=== PATIENT | male | born 1945 | race Caucasian/White ===

== ENCOUNTER → 2016-07-15 | Outpatient (CLI) | payer OTHER, MEDICARE ==
[~2016-07-15] MED LIST: ASPI81TA2 PO; LIP10 PO; SITA1TAB9 PO
[2016-07-15 11:30] LABS: BASOPHILS # (AUTO) 0.1 K/uL (0.0-0.2); BASOPHILS % (AUTO) 0.7 % (0.0-2.0); EOSINOPHILS # (AUTO) 0.4 K/uL (0.0-0.4); EOSINOPHILS % (AUTO) 4.9 % (0.0-4.0); HEMATOCRIT 44.8 % (36-54); HEMOGLOBIN 14.3 g/dL (14.0-18.0); LYMPHOCYTES # (AUTO) 2.2 K/uL (1.0-5.5); LYMPHOCYTES % (AUTO) 27.9 % (20.5-51.5); MEAN CORPUSCULAR HEMOGLOBIN 27 pg (27-31); MEAN CORPUSCULAR HGB CONC 32 % (32-36); MEAN CORPUSCULAR VOLUME 86 fL (79.0-98.0); MONOCYTES # (AUTO) 0.4 K/uL (0.0-1.0); MONOCYTES % (AUTO) 5.6 % (1.7-9.3); NEUTROPHILS # (AUTO) 4.6 K/uL (1.8-7.7); NEUTROPHILS % (AUTO) 60.9 % (40.0-70.0); PLATELET COUNT (AUTO) 254 K/uL (130-430); RED BLOOD CELL COUNT(AUTO) 5.23 MIL/uL (4.2-6.2); RED CELL DISTRIBUTION WIDTH 12.5 % (9.0-15.0); WHITE BLOOD COUNT (AUTO) 7.7 K/uL (4.8-10.8)
[2016-07-15 11:31] LABS: BILIRUBIN,URINE NEGATIVE (NEGATIVE); BLOOD, URINE 1+ (NEGATIVE); CLARITY/URINE CLEAR (CLEAR); COLOR,URINE YELLOW (YELLOW); GLUCOSE,URINE NEGATIVE (NEGATIVE); KETONES,URINE NEGATIVE (NEGATIVE); LEUKOCYTE ESTERASE ,URINE NEGATIVE (NEGATIVE); NITRITE, URINE NEGATIVE (NEGATIVE); PROTEIN URINE NEGATIVE (NEGATIVE); UROBILINOGEN,URINE 0.2 (0.2-1.0)
[2016-07-15 11:50] LABS: ALANINE AMINOTRANSFERASE 23 U/L (12-78); ALBUMIN 3.9 g/dL (3.4-4.8); ANION GAP 6 (5-15); ASPARTATE AMINOTRANSFERASE 18 U/L (10-37); CALCIUM 9.1 mg/dL (8.4-11.0); CHLORIDE 103 mmol/L (98-107); CHOLESTEROL 129 mg/dL (<200); CREATININE 1.22 mg/dL (0.55-1.30); GLUCOSE 106 mg/dL (70-99); HDL CHOLESTEROL 39 mg/dL (>45); LDL CHOLESTEROL 60 mg/dL (<100); POTASSIUM 4.6 mmol/L (3.5-5.1); SODIUM SERUM 138 mmol/L (136-145); THYROID STIMULATING HORMONE 1.93 uIu/mL (0.34-4.82); TOTAL BILIRUBIN 0.5 mg/dL (0.0-1.0); TOTAL PROTEIN, SERUM 8.3 g/dL (6.4-8.3); TRIGLYCERIDES 163 mg/dL (30-150); UREA NITROGEN, BLOOD 26 mg/dL (8-21)
[2016-07-15 11:59] LABS: BACTERIA,URINE RARE /HPF (None Seen); MUCUS,URINE 1+ /LPF (None Seen); WBC,URINE 0-3 /HPF (0-3)
[2016-07-18 08:06] LABS: % FREE PSA 20.5 % (.); FREE PSA 0.84 ng/mL
[2016-07-18 14:19] LABS: HEMOGLOBIN A1C 5.8 % (4.8-5.6)
[2016-07-18 14:21] LABS: PROSTATE SPECIFIC AG TOTAL 4.1 ng/mL (0.0-4.0)
== END | disposition home or self-care (01) ==
LOC: SLB 10:34
PROVIDERS: ATTEND Specialist
DX: N40.1 Benign prostatic hyperplasia with lower urinary tract symptoms (principal); R73.03 Prediabetes; E78.2 Mixed hyperlipidemia; R97.20 Elevated prostate specific antigen [PSA]
CPT/HCPCS: 36415; 80053; 80061; 81000-TC; 83036; 84153; 84443-TC; 85025

== ENCOUNTER 2018-07-01 09:22 | Emergency (ER) | payer OTHER, MEDICARE ==
[~2018-07-01] VITALS: Ht 170.2 cm; Wt 71.7 kg
[~2018-07-01 09:22] MED LIST changes: +ASPI-1155 PO; -ASPI81TA2 PO
[2018-07-01 09:29] VITALS: BP_SYST 164
--- NOTE | 2018-07-01 09:34 | NUR ---
Patient to ER bed 6 to gown for evaluation. Side rails up. Report given to Sam VALLE.
--- NOTE | 2018-07-01 09:40 | NUR ---
Pt presents to ED worsening of R lower back pain. Pt h/o NE and pre-diabetes. Pt reports pain started approx 2 months ago. Pt gradually worsened over last few days.
[2018-07-01] MEDS ORDERED: NACL 0.9% 1,000 ML IV ONE (09:41)
[2018-07-01] MEDS ORDERED: ONDANSETRON HCL 4 MG/2 ML VIAL IVP ONE (09:45)
[2018-07-01] MEDS ORDERED: MORPHINE 4 MG/ML INJ. SYRINGE IVP ONE (09:45)
[2018-07-01] MEDS ORDERED: DEXAMETHASONE SOD PHOSPHATE 10 MG/ML VIAL IVP ONE (09:45)
--- NOTE | 2018-07-01 09:45 | NUR ---
ER at bedside examining patient.
--- NOTE | 2018-07-01 10:15 | NUR ---
Pt medicated tolerated well. Will monitor for improvement.
[2018-07-01 10:21] LABS: BASOPHILS % (AUTO) 0.3 % (0.0-2.0); EOSINOPHILS % (AUTO) 0.6 % (0.0-4.0); HEMATOCRIT 42.1 % (36-54); HEMOGLOBIN 13.8 g/dL (14.0-18.0); LYMPHOCYTES # (AUTO) 1.4 K/uL (1.0-5.5); LYMPHOCYTES % (AUTO) 17.2 % (20.5-51.5); MEAN CORPUSCULAR HEMOGLOBIN 28 pg (27-31); MEAN CORPUSCULAR HGB CONC 33 % (32-36); MEAN CORPUSCULAR VOLUME 85 fL (79.0-98.0); MONOCYTES # (AUTO) 0.3 K/uL (0.0-1.0); MONOCYTES % (AUTO) 3.7 % (1.7-9.3); NEUTROPHILS # (AUTO) 6.2 K/uL (1.8-7.7); NEUTROPHILS % (AUTO) 78.2 % (40.0-70.0); PLATELET COUNT (AUTO) 208 K/uL (130-430); RED BLOOD CELL COUNT(AUTO) 4.95 MIL/uL (4.2-6.2); RED CELL DISTRIBUTION WIDTH 13.1 % (9.0-15.0); WHITE BLOOD COUNT (AUTO) 7.9 K/uL (4.8-10.8)
--- NOTE | 2018-07-01 10:34 | NUR ---
Pt repositioned for comfort and pain relief.
[2018-07-01 10:45] LABS: ANION GAP 10 (5-15); CALCIUM 8.7 mg/dL (8.4-11.0); CHLORIDE 102 mmol/L (98-107); CREATININE 1.07 mg/dL (0.55-1.30); GLUCOSE 112 mg/dL (70-99); POTASSIUM 4.2 mmol/L (3.5-5.1); SODIUM SERUM 136 mmol/L (136-145); UREA NITROGEN, BLOOD 26 mg/dL (8-21)
[2018-07-01] MEDS ORDERED: HYDROmorphone 1 MG INJ. 1 MG/ML AMPUL IVP ONE (10:45)
[2018-07-01 10:50] LABS: ALANINE AMINOTRANSFERASE 21 U/L (12-78); ALBUMIN 3.8 g/dL (3.4-4.8); ASPARTATE AMINOTRANSFERASE 21 U/L (10-37); TOTAL BILIRUBIN 0.4 mg/dL (0.0-1.0)
[2018-07-01] MEDS ORDERED: KETOROLAC TROMETHAMINE 30 MG VIAL IVP ONE (11:45)
--- NOTE | 2018-07-01 12:00 | NUR ---
Patient transported to radiology via gurney, accompanied by rad staff.
--- NOTE | 2018-07-01 14:01 | NUR ---
Patient given written and verbal discharge instructions and verbalizes understanding. ER MD discussed with patient the results and treatment provided. Patient in stable condition. ID arm band removed. IV catheter removed intact and dressing applied, no active bleeding. Rx of Medrol dose steff, Naprosyn, Tylenol with codeine given. Patient educated on pain management and to follow up with PMD. Pain Scale 3/10. Opportunity for questions provided and answered. Medication side effect fact sheet provided.
[2018-07-01 14:13] VITALS: BP_SYST 138
[2018-07-06] MEDS ORDERED: CYCL-10 PO (10:28)
== END 2018-07-01 14:13 | disposition home or self-care (01) ==
LOC: SED 09:22
DX: M51.37 Other intervertebral disc degeneration, lumbosacral region (principal); I25.2 Old myocardial infarction; Z79.82 Long term (current) use of aspirin; Z79.899 Other long term (current) drug therapy
CPT/HCPCS: 36415; 72148; 80053; 85025; 96374; 96375; 99284; J1100; J1170; J1885; J2270; J2405; J7030

== ENCOUNTER 2019-06-02 09:04 | Outpatient (CLI) | payer OTHER, MEDICARE ==
[~2019-06-02 09:04] MED LIST changes: +CYCL-10 PO; +HYDR-4274 PO; -SITA1TAB9 PO
[2019-06-02 09:50] LABS: BASOPHILS # (AUTO) 0.1 K/uL (0.0-0.2); BASOPHILS % (AUTO) 1.2 % (0.0-2.0); EOSINOPHILS # (AUTO) 0.3 K/uL (0.0-0.4); EOSINOPHILS % (AUTO) 5.7 % (0.0-4.0); HEMATOCRIT 41.4 % (36-54); HEMOGLOBIN 13.5 g/dL (14.0-18.0); LYMPHOCYTES # (AUTO) 1.7 K/uL (1.0-5.5); LYMPHOCYTES % (AUTO) 27.6 % (20.5-51.5); MEAN CORPUSCULAR HEMOGLOBIN 29 pg (27-31); MEAN CORPUSCULAR HGB CONC 33 % (32-36); MEAN CORPUSCULAR VOLUME 87 fL (79.0-98.0); MONOCYTES # (AUTO) 0.3 K/uL (0.0-1.0); MONOCYTES % (AUTO) 5.7 % (1.7-9.3); NEUTROPHILS # (AUTO) 3.6 K/uL (1.8-7.7); NEUTROPHILS % (AUTO) 59.8 % (40.0-70.0); PLATELET COUNT (AUTO) 199 K/uL (130-430); RED BLOOD CELL COUNT(AUTO) 4.75 MIL/uL (4.2-6.2); RED CELL DISTRIBUTION WIDTH 13.7 % (9.0-15.0)
[2019-06-02 10:40] LABS: ALANINE AMINOTRANSFERASE 21 U/L (12-78); ALBUMIN 3.6 g/dL (3.4-4.8); ANION GAP 6 (5-15); ASPARTATE AMINOTRANSFERASE 19 U/L (10-37); CALCIUM 8.2 mg/dL (8.4-11.0); CHLORIDE 104 mmol/L (98-107); CREATININE 1.25 mg/dL (0.55-1.30); GLUCOSE 98 mg/dL (70-99); POTASSIUM 3.9 mmol/L (3.5-5.1); SODIUM SERUM 139 mmol/L (136-145); THYROID STIMULATING HORMONE 3.56 uIu/mL (0.36-3.74); TOTAL BILIRUBIN 0.4 mg/dL (0.0-1.0); UREA NITROGEN, BLOOD 25 mg/dL (8-21)
[2019-06-02 11:37] LABS: CHOLESTEROL 119 mg/dL (<200); HDL CHOLESTEROL 38 mg/dL (>45); LDL CHOLESTEROL 55 mg/dL (<100); TRIGLYCERIDES 197 mg/dL (30-150)
[2019-06-03 08:06] LABS: % FREE PSA 40.8 % (.)
[2019-06-03 16:01] LABS: HEMOGLOBIN A1C 5.9 % (4.8-5.6); PROSTATE SPECIFIC AG TOTAL 4.9 ng/mL (0.0-4.0)
== END 2019-06-02 21:06 | disposition home or self-care (01) ==
LOC: SLB 09:04
PROVIDERS: ATTEND Specialist
DX: E78.2 Mixed hyperlipidemia (principal); I25.10 Atherosclerotic heart disease of native coronary artery without angina pectoris; R73.09 Other abnormal glucose; R97.20 Elevated prostate specific antigen [PSA]
CPT/HCPCS: 36415; 80053; 80061; 83036; 84153; 84443-TC; 85025

== ENCOUNTER 2021-09-06 15:58 | Outpatient (CLI) | payer OTHER, MEDICARE ==
[~2021-09-06 15:58] MED LIST changes: -ASPI-1155 PO; -CYCL-10 PO; +CYCL10TA24 PO
== END 2021-09-06 20:12 | disposition home or self-care (01) ==
LOC: SRD 15:58
DX: M47.26 Other spondylosis with radiculopathy, lumbar region (principal); M41.86 Other forms of scoliosis, lumbar region; M47.812 Spondylosis without myelopathy or radiculopathy, cervical region; M51.16 Intervertebral disc disorders with radiculopathy, lumbar region; Z98.890 Other specified postprocedural states; I70.90 Unspecified atherosclerosis
CPT/HCPCS: 72052; 72114-TC

== ENCOUNTER 2021-10-01 14:03 | Day surgery (SDC) | payer OTHER, MEDICARE ==
[~2021-10-01] VITALS: Ht 170.2 cm; Wt 67.1 kg
[2021-10-01 10:12] VITALS: BP_SYST 140
--- NOTE | 2021-10-01 10:12 | NUR ---
Patient to ER bed 6 to gown for evaluation. Side rails up. Report given to
--- NOTE | 2021-10-01 10:12 | NUR ---
ER at bedside examining patient.
--- NOTE | 2021-10-01 10:25 | NUR ---
Pt came from home with c/o lower back pain rated a 5/10. PT stated that the pain started 3 months ago and describes it as a dull pain. Pt states that sitting makes the pain worse. A&O x 4, ambulatory, and follows simple commands. Safety precuations are in place and pt connected to the monitor.
[2021-10-01 10:45] LABS: BILIRUBIN,URINE NEGATIVE (NEGATIVE); CLARITY/URINE CLEAR (CLEAR); COLOR,URINE YELLOW (YELLOW); GLUCOSE,URINE NEGATIVE (NEGATIVE); KETONES,URINE NEGATIVE (NEGATIVE); LEUKOCYTE ESTERASE ,URINE NEGATIVE (NEGATIVE); NITRITE, URINE NEGATIVE (NEGATIVE); PH,URINE 6.5 (5.0-8.0); PROTEIN URINE NEGATIVE (NEGATIVE); UROBILINOGEN,URINE 0.2 (0.2-1.0)
[2021-10-01 10:46] LABS: BASOPHILS # (AUTO) 0.1 K/uL (0.0-0.2); BASOPHILS % (AUTO) 0.9 % (0.0-2.0); EOSINOPHILS # (AUTO) 0.2 K/uL (0.0-0.4); EOSINOPHILS % (AUTO) 3.6 % (0.0-4.0); HEMATOCRIT 40.1 % (36-54); HEMOGLOBIN 13.4 g/dL (14.0-18.0); LYMPHOCYTES # (AUTO) 1.7 K/uL (1.0-5.5); LYMPHOCYTES % (AUTO) 29.4 % (20.5-51.5); MEAN CORPUSCULAR HEMOGLOBIN 29 pg (27-31); MEAN CORPUSCULAR HGB CONC 34 % (32-36); MEAN CORPUSCULAR VOLUME 87 fL (79.0-98.0); MONOCYTES # (AUTO) 0.3 K/uL (0.0-1.0); MONOCYTES % (AUTO) 4.8 % (1.7-9.3); NEUTROPHILS # (AUTO) 3.5 K/uL (1.8-7.7); NEUTROPHILS % (AUTO) 61.3 % (40.0-70.0); PLATELET COUNT (AUTO) 210 K/uL (130-430); RED BLOOD CELL COUNT(AUTO) 4.62 MIL/uL (4.2-6.2); RED CELL DISTRIBUTION WIDTH 14.1 % (9.0-15.0); WHITE BLOOD COUNT (AUTO) 5.7 K/uL (4.8-10.8)
[2021-10-01 10:55] LABS: BLOOD, URINE TRACE (NEGATIVE)
[2021-10-01 10:58] LABS: PROTHROMBIN TIME 10.2 SECS (9.5-12.5)
[2021-10-01] MEDS: NACL 0.9% 1,000 ML IV ONE (11:00)
[2021-10-01] MEDS: MORPHINE 2 MG/ML INJ. SYRINGE IVP ONE (11:00)
[2021-10-01 11:02] LABS: ANION GAP 10 (5-15); CALCIUM 8.5 mg/dL (8.4-11.0); CHLORIDE 104 mmol/L (98-107); CREATININE 1.14 mg/dL (0.55-1.30); GLUCOSE 93 mg/dL (70-99); SODIUM SERUM 140 mmol/L (136-145); UREA NITROGEN, BLOOD 20 mg/dL (8-21)
[2021-10-01 11:07] LABS: ALANINE AMINOTRANSFERASE 14 U/L (12-78); ALBUMIN 3.8 g/dL (3.4-4.8); ASPARTATE AMINOTRANSFERASE 21 U/L (10-37); TOTAL BILIRUBIN 0.3 mg/dL (0.0-1.0)
[2021-10-01 11:14] LABS: BACTERIA,URINE None Seen /HPF (None Seen); WBC,URINE 0-3 /HPF (0-3)
--- NOTE | 2021-10-01 11:57 | NUR ---
Stable VSS Minimal pain Has been given MS and NS running Surgery has seen Awaiting labs
--- NOTE | 2021-10-01 12:30 | NUR ---
Stable. Pain free. Aware of procedure [facility] nursing has spoken to patient. Surgery has picked up patient. To exit on gurney.
[~2021-10-01 14:03] MED LIST changes: +BUPIVACAINE /EPINEPHRINE/PF 0.5% 30 ML VIAL INJ ONE; +CEFAZOLIN 2 GM IVPB PREMIX 50 ML IV ONE; +GLYCOPYRROLATE 0.2 MG/ML VIAL ONE; +KETOROLAC TROMETHAMINE 30 MG VIAL ONE; +METOCLOPRAMIDE HCL 10 MG/2 ML VIAL IVP PRN; +MIDAZOLAM HCL 5 MG/5 ML VIAL ONE; +NS 1000 ML IV.SOLN IV ONE; +NS IRRIG SOLN 1000 ML IR ONE; +ONDANSETRON HCL 4 MG/2 ML VIAL IVP PRN; +ONDANSETRON HCL 4 MG/2 ML VIAL ONE; +PHENYLEPHRINE HCL 10 MG/ML VIAL (NEOSYNEPHRINE) ONE; +PROPOFOL 200MG/ 20ML VIAL (DIPRIVAN) IV ONE; +ROCURONIUM BROMIDE 10 MG/ML (ZEMURON) ONE; +SEVOFLURANE 15 MIN GAS INH ONE; +THROMBIN (BOVINE) 5000 UNITS/ VIAL TP ONE; +fentaNYL CITRATE/PF 100 MCG/2 ML AMP IVP PRN; +fentaNYL CITRATE/PF 100 MCG/2 ML AMP ONE
[2021-10-01] MEDS ORDERED: ZOLPIDEM TARTRATE 5 MG TABLET PO PRN (14:15)
[2021-10-01] MEDS ORDERED: MORPHINE SULFATE 10 MG/ML VIAL IVP PRN ×2 (14:15)
[2021-10-01] MEDS ORDERED: ACETAMINOPHEN 325 MG TABLET PO PRN ×2 (14:15→14:30)
[2021-10-01] MEDS ORDERED: ONDANSETRON HCL 4 MG/2 ML VIAL IVP PRN (14:15)
[2021-10-01] MEDS ORDERED: HYDROcodone/ACETAMIN 10-325 MG TAB PO PRN ×2 (14:15)
[2021-10-01] MEDS ORDERED: MORPHINE 4 MG INJ. 4 MG/ML VIAL IVP PRN (14:15)
[2021-10-01] MEDS ORDERED: MILK OF MAGNESIA 30 ML UDC PO PRN (14:15)
[2021-10-01] MEDS ORDERED: methocarbamoL 500 MG TABLET PO PRN (14:15)
[2021-10-01 15:00] VITALS: BP_SYST 130
--- NOTE | 2021-10-01 15:00 | NUR ---
RECEIVED PATIENT FROM MACHINE FOLDERLEONARD HERNANDEZ, PT IS AAO x4, DENIES PAIN/DISCOMFORT. RESPIRATIONS EVEN AND UL ON RA, DENIES SOB/DISTRESS. PER MACHINE FOLDER PT IS S/P LAMINECTOMY, SMALL DRESSING NOTED TO BACK, CDI, NO DRAINAGE NOTED. DENIES CP/CARDIAC DISCOMFORT, PULSES PALPABLE AND STRONG. ABD SOFT AND ROUND, BS ACTIVE x4, DENIES N/V/D. PATIENT IS AMBULATORY AND ABLE TO MOVE ALL EXTREMITIES, DENIES NUMBNESS/TINGLING. IVF INFUSING TO LAC PER MD ORDER, IV SITE WNL. ALL NEEDS MET. DAUGHTER AND AT BEDSIDE. BED IN LOWEST POSITION, CALL LIGHT IN REACH, SAFETY MEASURES IN PLACE. WILL CONT TO MONITOR. Addendum: 10/01/21 at 1803 by [employer] senior software tester VITAL SIGNS: BP 125/71, HR 64, RR 18, 02 96% RA, T 97.1. DENIES PAIN.
[2021-10-01] MEDS: KCL 20 mEq in D5NS 1000 mL 1,000 ML IV SCH (15:26)
[2021-10-01 17:30] VITALS: BP_SYST 119
--- NOTE | 2021-10-01 17:45 | NUR ---
PATIENT AND FAMILY STATED HE IS READY TO BE DISCHARGED, IV SITE REMOVED, CATH INTACT, NO BLEEDING NOTED. PT REMAINS STABLE, NO CHANGES NOTED. SMALL DRESSING TO BACK CDI, NO DRAINAGE NOTED. PATIENT ACCOMPANIED TO FAMILY VEHICLE VIA WHEELCHAIR BY MAINTENANCE FITTER, DAUGHTER AND PRESENT. Addendum: 10/01/21 at 1805 by [employer] dye house hand VITAL SIGNS: BP 119/70, HR 66, T 97.0, RR 18, 02 99%, DENIES PAIN/DISCOMFORT.
== END 2021-10-01 17:25 | disposition home or self-care (01) ==
LOC: SMU 14:03 → SDS 14:03 → SMU 14:08 → SDS 14:18
PROVIDERS: ATTEND Neurological Surgery
DX: M48.061 Spinal stenosis, lumbar region without neurogenic claudication (principal); M54.16 Radiculopathy, lumbar region; E78.00 Pure hypercholesterolemia, unspecified; Z96.659 Presence of unspecified artificial knee joint; Z79.01 Long term (current) use of anticoagulants; Z79.899 Other long term (current) drug therapy
CPT/HCPCS: 36415; 63042; 63044; 80053; 81000; 85025; 85610; 85730; 93005; J0690; J1885; J2250; J2270; J2370; J2405; J2704; J3010; J3490 ×2; J7030; 76000